=== PATIENT | female | born 1945 | race Caucasian/White ===

== ENCOUNTER → 2023-06-14 | Outpatient (CLI) | payer MEDICARE, OTHER ==
[~2023-06-14] MED LIST: AMOCLA500 PO; CIPR500 PO; FISH1000 PO; HORMONE CREAM; Hydrocodone-Ap1 EA23 PO; METR500 PO; Ocuvite Lutein1 EACH PO; RXHYD5325 PO; [UNRECOGNIZED DRUG - OTHER] PO
[2023-06-14 13:33] LABS: Source, Urine Voided
[2023-06-14 14:59] LABS: Bacteria Many /hpf; Mucus Light (0-Heavy); Squamous Epithelial Cells Few /hpf (Few); Transitional Epithelial Cells Rare /hpf (0-Rare)
== END | disposition home or self-care (01) ==
LOC: LAB SHORT 13:24 → LAB 13:24
PROVIDERS: Family Medicine
DX: R30.0 Dysuria (principal)
CPT/HCPCS: 81015